=== PATIENT | male | born 1985 | race Hispanic/Latino ===

== ENCOUNTER 2020-09-30 09:09 | Emergency (ER) | payer OTHER ==
[~2020-09-30] VITALS: Ht 177.8 cm; Wt 120.2 kg
[~2020-09-30 09:09] MED LIST: [UNRECOGNIZED DRUG - OTHER]
== END 2020-09-30 09:35 | disposition home or self-care (01) ==
LOC: ER 09:22
DX: R10.30 Lower abdominal pain, unspecified (principal); K62.5 Hemorrhage of anus and rectum; F17.210 Nicotine dependence, cigarettes, uncomplicated
CPT/HCPCS: 99282